=== PATIENT | female | born 1985 | race Caucasian/White ===

== ENCOUNTER 2016-12-20 11:43 | Emergency (ER) | payer BC ==
--- NOTE | 2016-12-20 12:09 | EDM.PDOC ---
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 coates in the clinic for a non- progressing /blighted ovum. Patient states on Saturday she had heavy bleeding with clots and tissue with cramping but that seemed to improve the beginning of the week and then the bleeding restarted today which has been quite heavy using multiple large pads. She has some mild cramping but no nausea or vomiting no urinary symptoms no flank pain and no excessive amount of pelvic pain. Patient was concerned that the volume of bleeding and thought she should be evaluated. The patient's last quantitative hCG was done on December 13 and was 15,795. Patient states she had ultrasounds performed in the office by Dr. coates, the last one being on before the Cytotec, which documented the not progressing. Patient does not feel lightheaded or dizzy and has no chest pain or shortness of breath. Patient does have a history of extensive cardiac surgery to repair an ASD, right ventriculoplasty and a band repair of the tricuspid valve performed in 2008. 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 She's not on any anticoagulation therapy or any blood pressure medication Review of systems: As per history of present illness and below otherwise all systems reviewed and negative. Past medical history: As per history of present illness and as reviewed below otherwise noncontributory. Surgical history: As per history of present illness and as reviewed below otherwise noncontributory. Social history: No reported history of drug or alcohol abuse. Family history: As per history of present illness and as reviewed below otherwise noncontributory. Physical exam: General: Well-developed well-nourished female who is nontoxic and vital signs were reviewed by me. HEENT: Atraumatic, normocephalic, negative for conjunctival pallor or scleral icterus, mucous membranes moist, throat clear, neck supple, nontender, trachea midline. Lungs: Clear to auscultation, breath sounds equal bilaterally, chest nontender. Heart: S1S2, regular, negative for clicks, rubs, or JVD. Abdomen: Soft, nondistended, nontender. Negative for masses or hepatosplenomegaly. Negative for costovertebral tenderness. Pelvis: Stable nontender. Genitourinary: External genitalia within normal limits and there is some dark blood and clots in the vault. Os has a trickle of blood emerging and is not open and the uterus is small and somewhat bulky but nontender and no adnexal tenderness. Rectal: Deferred. Extremities: Atraumatic, negative for cords or calf pain. Neurovascular unremarkable. Neuro: Awake, alert, oriented. Cranial nerves II through XII unremarkable. Cerebellum unremarkable. Motor and sensory unremarkable throughout. Exam nonfocal. Diagnostics: CBC serum quantitative hCG pelvic ultrasound Therapeutics: 1205: Case was discussed with Dr. coates who recommends CBC hCG pelvic ultrasound and to recontact her with those results. 1342: All testing results were discussed with Dr. coates as well as with the patient and she recommends giving the patient Methergine your 0.2 mg every 6 hours for 2 days. The patient has been advised that if the bleeding stops and she continues to have cramping to stop the medication and to call Dr. Coates's office she has any issues with persistent heavy bleeding. Impression: Persistent vaginal bleeding, complete Definitive disposition and diagnosis as appropriate pending reevaluation and review of above. Pelvic Cramping Pain Score (Numeric/FACES): 3 - Related Data Allergies Allergy/AdvReac Type Severity Reaction Status Date / Time Penicillins Allergy Rash Verified 12/20/16 11:52 Home Meds: Home Meds Vit37/Iron/Folic Acid [Prenata] 1 tab PO DAILY 10/26/14 [History] Social & Family History - Tobacco Use Smoking Status *Q: Never Smoker - Alcohol Use Days Per Week of Alcohol Use: 0 Number of Drinks Per Day: 0 Total Drinks Per Week: 0 - Recreational Drug Use Recreational Drug Use: No Drug Use in Last 12 Months: No ED ROS GENERAL - Review of Systems Review Of Systems: ROS reveals no pertinent complaints other than HPI. ED EXAM, GENERAL - Physical Exam Exam: See Below (See dictation) Course - Vital Signs Last Recorded V/S: Last Vital Signs Temp 36.3 C 12/20/16 11:52 Pulse 110 H 12/20/16 11:52 Resp 18 12/20/16 11:52 BP 128/73 12/20/16 11:52 Pulse Ox 97 12/20/16 11:52 - Orders/Labs/Meds Labs: Laboratory Tests 12/20/16 12/20/16 Range/Units 12:20 12:20 WBC 9.73 (4.0-11.0) K/uL RBC 3.70 L (4.30-5.90) M/uL Hgb 11.4 L (12.0-16.0) g/dL Hct 33.3 L (36.0-46.0) % MCV 90.0 (80.0-98.0) fL MCH 30.8 (27.0-32.0) pg MCHC 34.2 (31.0-37.0) g/dL RDW Std Deviation 39.5 (28.0-62.0) fl RDW Coeff of Renan 12 (11.0-15.0) % Plt Count 169 (150-400) K/uL MPV 11.60 (7.40-12.00) fL Neut % (Auto) 75.4 (48.0-80.0) % Lymph % (Auto) 19.5 (16.0-40.0) % [place] % (Auto) 4.3 (0.0-15.0) % Eos % (Auto) 0.5 (0.0-7.0) % Baso % (Auto) 0.3 (0.0-1.5) % Neut # (Auto) 7.3 H (1.4-5.7) K/uL Lymph # (Auto) 1.9 (0.6-2.4) K/uL [place] # (Auto) 0.4 (0.0-0.8) K/uL Eos # (Auto) 0.1 (0.0-0.7) K/uL Baso # (Auto) 0.0 (0.0-0.1) K/uL Nucleated RBC % 0.0 /100WBC Nucleated RBCs # 0 K/uL HCG, Quant 338.2 mIU/mL Departure - Departure Time of Disposition: 13:51 Disposition: Home, Self-Care 01 Condition: good Clinical Impression: Complete , Vaginal bleeding Forms: ED Department Discharge Additional Instructions: The following information is given to patients seen in the emergency department who are being discharged to home. This information is to outline your options for follow-up care. We provide all patients seen in our emergency department with a follow-up referral. The need for follow-up, as well as the timing and circumstances, are variable depending upon the specifics of your emergency department visit. If you don't have a primary care physician on staff, we will provide you with a referral. We always advise you to contact your personal physician following an emergency department visit to inform them of the circumstance of the visit and for follow-up with them and/or the need for any referrals to a consulting specialist. The emergency department will also refer you to a specialist when appropriate. This referral assures that you have the opportunity for followup care with a specialist. All of these measure are taken in an effort to provide you with optimal care, which includes your followup. Under all circumstances we always encourage you to contact your private physician who remains a resource for coordinating your care. When calling for followup care, please make the office aware that this follow-up is from your recent emergency room visit. If for any reason you are refused follow-up, please contact the [facility] emergency department at and ask to speak to the emergency department charge nurse. [facility] [address] [phone] Please call 's office for any persistent vaginal bleeding and take Methergine as prescribed. Rest and push fluids and return to ER as needed and as discussed. Please keep your followup appointment in the clinic
--- NOTE | 2016-12-20 13:33 | US ---
EXAMINATION: Transvaginal pelvic ultrasound HISTORY: Pain COMPARISON: None TECHNIQUE: Grayscale, color Doppler, and spectral Doppler images obtained transvaginally. FINDINGS: Uterus is normal in size, contour, and echogenicity without a focal uterine mass. The endo metrial stripe thickness measures 1 cm and is mildly heterogeneous without internal color Doppler fl ow. No free pelvic fluid. Both the left and right ovaries appear normal in size, contour, and echogenicity demonstrating yemi l color and spectral Doppler flow. Small follicles are noted. No adnexal masses. IMPRESSION: 1. Possible minimal remaining hemorrhagic products within the endometrial stripe without evidence of retained products of conception.
[2016-12-20 14:08] VITALS: BP 115/67
== END 2016-12-20 14:04 | disposition home or self-care (01) ==
LOC: MW.ED 11:43
DX: O03.9 Complete or unspecified spontaneous abortion without complication (principal); Z88.0 Allergy status to penicillin
CPT/HCPCS: 36415; 76856; 76856-26; 84702; 85025; 99283; 99284-25

== ENCOUNTER 2017-11-05 09:47 | Inpatient (IN) | payer BC ==
[2017-11-05] MEDS ORDERED: Clindamycin Phosphate in D5W 900 MG in Premix Bag 1 BAG IV ONE ×2 (10:10)
[2017-11-05] MEDS ORDERED: Sodium Chloride 0.9% 2.5 ML Syringe FLUSH PRN (10:10)
[2017-11-05] MEDS ORDERED: Sodium Chloride 0.9% 10 ML Syringe FLUSH PRN (10:10)
[2017-11-05] MEDS ORDERED: Oxytocin/0.9 % Sodium Chloride 30 UNIT/500 ML BAG IV SCH (10:15)
[2017-11-05] MEDS ORDERED: Citric Acid/Sodium Citrate Solution 30 ML Cup PO SCH (10:15)
[2017-11-05] MEDS ORDERED: Gentamicin Pediatric 10 MG/ML 2 ML SDV IV SCH (10:15)
--- NOTE | 2017-11-05 10:30 | PCM.PREANE ---
Preanesthetic Assessment - Anesthesia/Transfusion/Family Hx Anesthesia History: Prior Anesthesia Without Reaction (Regional and GA without complications) Other Type of Anesthesia Reaction Comment: Denies any known problem in past, no known family hx; problems Transfusion History: No Prior Transfusion(s) - Review of Systems General: No Symptoms Pulmonary: No Symptoms Cardiovascular: No Symptoms Gastrointestinal: No Symptoms Neurological: No Symptoms Other: Reports: None - Physical Assessment NPO Status Date: 11/04/17 NPO Status Time: 22:00 Pulse: 68 O2 Sat by Pulse Oximetry: 99 Respiratory Rate: 18 Height: 5 ft 8 in Weight: 84.368 kg ASA Class: 2 Mental Status: Alert & Oriented x3 Airway Class: Mallampati = 2 Dentition: Reports: Normal Dentition Thyro-Mental Finger Breadths: 3 Mouth Opening Finger Breadths: 3 ROM/Head Extension: Full Lungs: Clear to Auscultation, Normal Respiratory Effort Cardiovascular: Regular Rate, Irregular Rhythm - Lab Values: Laboratory Last Values WBC 8.30 K/uL (4.0-11.0) 11/04/17 11:07 RBC 4.29 M/uL (4.30-5.90) L 11/04/17 11:07 Hgb 13.2 g/dL (12.0-16.0) 11/04/17 11:07 Hct 39.0 % (36.0-46.0) 11/04/17 11:07 MCV 90.9 fL (80.0-98.0) 11/04/17 11:07 MCH 30.8 pg (27.0-32.0) 11/04/17 11:07 MCHC 33.8 g/dL (31.0-37.0) 11/04/17 11:07 RDW Std Deviation 42.9 fl (28.0-62.0) 11/04/17 11:07 RDW Coeff of Renan 13 % (11.0-15.0) 11/04/17 11:07 Plt Count 154 K/uL (150-400) 11/04/17 11:07 MPV 11.90 fL (7.40-12.00) 11/04/17 11:07 Nucleated RBC % 0.0 /100WBC 11/04/17 11:07 Nucleated RBCs # 0 K/uL 11/04/17 11:07 Blood Type A POSITIVE 11/04/17 11:07 Antibody Screen NEGATIVE 11/04/17 11:07 - Allergies Allergies/Adverse Reactions: Allergies Allergy/AdvReac Type Severity Reaction Status Date / Time Penicillins Allergy Hives Verified 10/31/17 13:13 - Acknowledgements Anesthesia Type Planned: General Anesthesia, Spinal (with Duramorph) Pt an Appropriate Candidate for the Planned Anesthesia: Yes Alternatives and Risks of Anesthesia Discussed w Pt/Guardian: Yes Pt/Guardian Understands and Agrees with Anesthesia Plan: Yes PreAnesthesia Questionnaire Other HEENT History: has upper and lower permanent dental retainer Cardiovascular History: Reports: Other (See Below) Other Cardiovascular History: Congential tricuspid valve defect Respiratory History: Reports: None Gastrointestinal History: Reports: GERD Genitourinary History: Reports: None LOAD BLOCKER History: Reports: , Other (See Below) : 2 Para: 1 LMP (Approximate): Other OB/BYN History: Ovarian cysts Musculoskeletal History: Reports: None Neurological History: Reports: None Psychiatric History: Reports: None Endocrine/Metabolic History: Reports: Diabetes, Gestational (Has required insulin for the that month) Hematologic History: Reports: None Immunologic History: Reports: None Oncologic (Cancer) History: Reports: None Dermatologic History: Reports: None - Infectious Disease History Infectious Disease History: Reports: None - Past Surgical History Head Surgeries/Procedures: Reports: None Cardiovascular Surgical History: Reports: Other (See Below) Other Cardiovascular Surgeries/Procedures: Repair to Tricuspid Valve in 2008. - correction of Ebstein's Anomaly Female Surgical History: Reports: Section, Other (See Below) Other Female Surgeries/Procedures: "Bladder stretch surgery 25yrs ago" - SUBSTANCE USE Smoking Status *Q: Never Smoker Days Per Week of Alcohol Use: 0 Number of Drinks Per Day: 0 Total Drinks Per Week: 0 Recreational Drug Use History: No - HOME MEDS Home Medications: Home Meds Docosahexanoic Acid [ Dha] 1 cap PO DAILY 10/31/17 [History] L.acidoph,Paracasei, B.lactis [Probiotic] 1 cap PO DAILY 10/31/17 [History] Nph, Human Insulin Isophane [Humulin N] 10 unit SQ BEDTIME 10/31/17 [History] - CURRENT (IN HOUSE) MEDS Current Meds: Current Medications Citric Acid/Sodium Citrate (Bicitra Solution) 30 ml PO .ONCE AGATA Clindamycin Phosphate 900 mg/ (Premix) 50 mls @ 100 mls/hr IV ASDIRECTED ONE Stop: 11/05/17 10:39 Lactated Ringer's (Ringers, Lactated) 1,000 mls @ 500 mls/hr IV .BOLUS GAATA Oxytocin/Sodium Chloride (Oxytocin 30 Unit/500 Ml-Ns) 30 unit in 500 mls @ 250 mls/hr IV TITRATE AGATA Gentamicin Sulfate 240 mg/ (Sodium Chloride) 56 mls @ 112 mls/hr IV Q12H AGATA Sodium Chloride (Saline Flush) 10 ml FLUSH ASDIRECTED PRN PRN Reason: Keep Vein Open Sodium Chloride (Saline Flush) 2.5 ml FLUSH ASDIRECTED PRN PRN Reason: Keep Vein Open
[2017-11-05] MEDS ORDERED: Ondansetron 4 MG/2 ML SDV ONE (10:33)
[2017-11-05] MEDS ORDERED: ePHEDrine 50 MG/ML SDV ONE ×2 (10:33→11:09)
[2017-11-05] MEDS ORDERED: Morphine PF 1 MG/ML Amp ONE (10:34)
[2017-11-05] MEDS ORDERED: Sodium Chloride 0.9% 20 ML ONE ×2 (10:34→11:46)
[2017-11-05] MEDS ORDERED: Oxytocin/0.9 % Sodium Chloride 30 UNIT/500 ML BAG ONE (10:45)
[2017-11-05] MEDS: Lactated Ringers 1,000 ML IV SCH ×2 (10:59→11:23)
[2017-11-05 11:15] LABS: CHLORIDE,CL 106 mmol/L (98-110); SODIUM,NA 137 mmol/L (136-146)
[2017-11-05] MEDS ORDERED: Octyl 2-Cyanoacrylate 1 Tube ONE (11:18)
[2017-11-05] MEDS ORDERED: Acetaminophen/oxyCODONE 325-5 MG Tab PO PRN ×2 (12:23→12:36)
[2017-11-05] MEDS ORDERED: diphenhydrAMINE 50 MG/ML SDV IVPUSH PRN (12:23)
[2017-11-05] MEDS ORDERED: Bisacodyl 10 MG Supp RECTAL PRN (12:23)
[2017-11-05] MEDS ORDERED: Lanolin 100% Cream 7 GM Tube TOP PRN (12:23)
[2017-11-05] MEDS ORDERED: Ondansetron 4 MG/2 ML SDV IV PRN (12:23)
[2017-11-05] MEDS ORDERED: Ibuprofen 800 MG Tab PO PRN (12:23)
--- NOTE | 2017-11-05 12:27 | PCM.OPNOTE ---
- General Post-Op/Procedure Note Date of Surgery/Procedure: 11/05/17 Operative Procedure(s): repeat low transverse Findings: liveborn male complete breech presentation, meconium present, normal pelvis Pre Op Diagnosis: 39 weeks breech presentation, prior , gestational diabetes, declines version, Post-Op Diagnosis: Same Anesthesia Technique: Spinal Primary Surgeon: Monica Coates Anesthesia Provider: Angel Watts Structural Mill Supervisor: Lesly Lock Pathology: none Fluid Replacement, Intraop: 2,200 Output, Urine Amount: 280 EBL in mLs: 500 Complications: None Known Condition: Good
[2017-11-05] MEDS ORDERED: Lactated Ringers 1,000 ML IV SCH (12:30)
[2017-11-05] MEDS ORDERED: fentaNYL 100 MCG/2 ML SDV IVPUSH PRN (12:36)
[2017-11-05] MEDS ORDERED: Nalbuphine 10 MG/1 ML Vial IVPUSH PRN (12:36)
[2017-11-05] MEDS ORDERED: Naloxone 0.4 MG/ML Syringe IVPUSH PRN (12:36)
--- NOTE | 2017-11-05 12:42 | PCM.POSTAN ---
POST ANESTHESIA ASSESSMENT - MENTAL STATUS Mental Status: Alert, Oriented - RESPIRATORY Respiratory Status: Respiratory Rate WNL, Airway Patent, O2 Saturation Stable - CARDIOVASCULAR CV Status: Pulse Rate WNL, Blood Pressure Stable - GASTROINTESTINAL GI Status: No Symptoms - PAIN Pain Score: 0 (spinal still intact) - POST OP HYDRATION Hydration Status: Adequate & Stable
[2017-11-05] MEDS: Ketorolac 30 MG/ML SDV IVPUSH SCH ×2 (12:57→18:32)
--- NOTE | 2017-11-05 16:47 | OR ---
SURGEON: Monica Coates M.D. DATE OF PROCEDURE: 11/05/2017 PREOPERATIVE DIAGNOSES: 1. 39 and 6/7 week intrauterine . 2. Breech presentation. 3. Prior delivery, declines external version. 4. Gestational diabetes type A2. 5. Corrected maternal Ebstein anomaly. POSTOPERATIVE DIAGNOSES: 1. 39 and 6/7 week intrauterine . 2. Breech presentation. 3. Prior delivery, declines external version. 4. Gestational diabetes type A2. 5. Corrected maternal Ebstein anomaly. PROCEDURE: Repeat low-transverse section. ANESTHESIA: Spinal. ESTIMATED BLOOD LOSS: 500 mL. FLUIDS: 2200 mL of crystalloid. URINE OUTPUT: 280 mL. FINDINGS: Live-born male, weight and Apgars are pending. Meconium noted. Complete breech presentation. Normal-appearing uterus, tubes, and ovaries. COMPLICATIONS: None known. DISPOSITION: The infant is in nursery in good condition. Mother is in recovery in good condition. BRIEF HISTORY: This is a 32-year-old female, she is -0-1-2. She presents at 39 and 6/7 weeks' gestation for a repeat delivery due to breech presentation. Discussion for external version was held; however, she has had a prior delivery and after discussion, she desires to proceed with a repeat if the baby is breech at the time of presentation. Confirmation of breech presentation was performed prior to taking the patient to the OR. Risks of delivery were discussed including bleeding, infection, injury to bowel, bladder, blood vessels, ureters or other organs, risk of thromboembolic event, and risk of anesthesia. She does take NPH insulin 15 units at bedtime with excellent glucose control and she has a corrected Brian anomaly and this is her 3rd delivery since correction of the anomaly and has had no complications regarding cardiac issues during the . DESCRIPTION OF PROCEDURE: With the patient in left tilt position, under adequate spinal analgesia, the abdomen was prepped with chlorhexidine and draped in usual fashion for abdominal surgery. SCDs were in place. Chow catheter had been placed and she had received clindamycin and gentamicin preoperatively for SBE prophylaxis in addition to routine prophylaxis. After documentation of adequate analgesia, a transverse curvilinear incision was made 2 cm cephalad from the pubic symphysis and carried through the subcutaneous tissue to the fascia, which was scored transversely in the midline. The fascial incision was extended using curved Ron scissors and elevated from the underlying rectus muscle using sharp and blunt dissection. The rectus muscles were in midline. A finger was used to enter the peritoneal cavity. There were no adhesions anteriorly. The incision was extended using sharp and blunt dissection. There was some adhesion of the bladder peritoneum to the lower uterine segment. These were incised and released and then the Cody O retractor was placed. The transverse curvilinear incision was made over the lower uterine segment with a scalpel. Meconium was noted and therefore DeLee suction was placed on the table and the incision was extended by blunt dissection. The feet were delivered via the uterine incision. The was turned to sacrum anterior position and with fundal pressure, the arms were swept. A finger was placed into the mouth and the head was flexed and delivered with the DeLee suctioning. The cord was clamped x2 and cut and the infant was handed to the nurse present at the time of delivery. The infant was a liveborn male, weight and Apgars are pending at the time of dictation. Cord blood was collected for cord ABGs as well as routine cord blood sampling. The placenta was removed by manual extraction. The uterus was cleaned with a dry laparotomy tape. The cervix was opened with ring forceps. The uterine incision was closed with a running locked suture of 0 Polysorb followed by an imbricating layer of 0 Polysorb. The uterine incision was inspected and was completely hemostatic. The tubes and ovaries were inspected and appeared normal. The posterior cul-de-sac and paracolic gutters were cleaned with wet laparotomy tape. The uterine incision was again inspected and was completely hemostatic. Therefore, the Cody O retractor was removed and the rectus muscles were reapproximated in midline using a running mattress suture of 0 Polysorb. The posterior aspect of the fascia was inspected and any areas of bleeding that were noted were cauterized. The fascial incision was closed with a running suture of 0 Polysorb. Subcutaneous tissue was irrigated. Any areas of bleeding that were noted were cauterized. The skin was closed with a running subcuticular suture of 3-0 Polysorb followed by skin glue. Final sponge, needle, and instrument counts were reported as correct. There were no known complications. Mother is in recovery in good condition. Infant is in nursery in good condition and score for the male were 8 and 9 with 3590 g or 7 pounds 15 ounces. MERCEDES BUITRAGO /[id number]
[2017-11-05] MEDS: Docusate Sodium 100 MG Cap PO SCH (20:52)
[2017-11-06] MEDS: Ketorolac 30 MG/ML SDV IVPUSH SCH ×3 (00:26→12:41)
[2017-11-06 05:37] LABS: CHLORIDE,CL 103 mmol/L (98-110); SODIUM,NA 135 mmol/L (136-146)
--- NOTE | 2017-11-06 07:27 | PCM48HPAN ---
Post Anesthesia Note - EVALUATION WITHIN 48HRS OF ANESTHETIC Vital Signs in Normal Range: Yes Patient Participated in Evaluation: Yes Respiratory Function Stable: Yes Airway Patent: Yes Cardiovascular Function Stable: Yes Hydration Status Stable: Yes Pain Control Satisfactory: Yes Nausea and Vomiting Control Satisfactory: Yes Mental Status Recovered: Yes Pulse Rate: 68 Resp Rate: 17 - COMMENTS/OBSERVATIONS Free Text/Narrative:: Pt up to the bathroom getting ready for the day with no reported anesthesia complications. She states that she has had slight pruritis in her face from the duramorph, but that it is minimal compared to her last .
--- NOTE | 2017-11-06 09:48 | PCM.PNPP ---
- General Info Date of Service: 11/06/17 Functional Status: Reports: Pain Controlled, Tolerating Diet, Ambulating, Urinating - Review of Systems General: Reports: No Symptoms HEENT: Reports: No Symptoms Pulmonary: Reports: No Symptoms Cardiovascular: Reports: No Symptoms Gastrointestinal: Reports: No Symptoms Genitourinary: Reports: No Symptoms Musculoskeletal: Reports: No Symptoms Skin: Reports: No Symptoms Neurological: Reports: No Symptoms Psychiatric: Reports: No Symptoms - Patient Data Vital Signs - Most Recent: Last Vital Signs Temp 36.6 C 11/06/17 04:00 Pulse 68 11/06/17 07:27 Resp 17 11/06/17 07:27 BP 108/56 L 11/06/17 00:00 Pulse Ox 95 11/06/17 07:00 Weight - Most Recent: 84.368 kg I&O - Last 24 Hours: Intake & Output 11/05/17 11/06/17 11/06/17 22:59 06:59 14:59 Intake Total 300 1800 Output Total 565 800 Balance -265 1000 Lab Results - Last 24 Hours: Laboratory Results - last 24 hr 11/05/17 11/05/17 11/06/17 Range/Units 10:46 10:46 05:00 Hgb 11.8 L (12.0-16.0) g/dL Hct 35.4 L (36.0-46.0) % Sodium 137 (136-146) mmol/L Potassium 3.9 (3.5-5.1) mmol/L Chloride 106 (98-110) mmol/L Carbon Dioxide 22 (21-31) mmol/L BUN 12 (6.0-23.0) mg/dL Creatinine 0.6 (0.6-1.5) mg/dL Est Cr Clr Drug Dosing 135.79 mL/min Estimated GFR (MDRD) > 60.0 ml/min Glucose 90 (60-110) mg/dL Calcium 9.1 (8.8-10.8) mg/dL Magnesium 1.0 L (1.5-2.3) mEq/L 11/06/17 Range/Units 05:00 Hgb (12.0-16.0) g/dL Hct (36.0-46.0) % Sodium 135 L (136-146) mmol/L Potassium 4.3 (3.5-5.1) mmol/L Chloride 103 (98-110) mmol/L Carbon Dioxide 25 (21-31) mmol/L BUN 12 (6.0-23.0) mg/dL Creatinine 0.6 (0.6-1.5) mg/dL Est Cr Clr Drug Dosing 135.79 mL/min Estimated GFR (MDRD) > 60.0 ml/min Glucose 109 (60-110) mg/dL Calcium 8.5 L (8.8-10.8) mg/dL Magnesium (1.5-2.3) mEq/L Med Orders - Current: Current Medications Bisacodyl (Dulcolax) 10 mg RECTAL .ONCE PRN PRN Reason: Constipation Diphenhydramine HCl (Benadryl) 25 mg IVPUSH Q6H PRN PRN Reason: Itching or Nausea Docusate Sodium (Colace) 100 mg PO BID [facility] Last Admin: 11/05/17 20:52 Dose: 100 mg Emollient Ointment (Lansinoh Hpa) 0 gm TOP ASDIRECTED PRN PRN Reason: Sore Nipples Last Admin: 11/05/17 20:52 Dose: 7 gm Fentanyl (Sublimaze) 50 mcg IVPUSH Q60M PRN PRN Reason: Breakthrough Pain Stop: 11/06/17 12:40 Lactated Ringer's (Ringers, Lactated) 1,000 mls @ 125 mls/hr IV ASDIRECTED [facility] Last Admin: 11/05/17 13:25 Dose: 125 mls/hr Ibuprofen (Motrin) 800 mg PO Q8H PRN PRN Reason: mild pain or fever Ketorolac Tromethamine (Toradol) 30 mg IVPUSH Q6H [facility] Stop: 11/06/17 12:31 Last Admin: 11/06/17 06:53 Dose: 30 mg Nalbuphine HCl (Nubain) 2.5 mg IVPUSH Q3H PRN PRN Reason: Pruritis Stop: 11/06/17 12:41 Naloxone HCl (Narcan) 0.1 mg IVPUSH ONETIME PRN PRN Reason: RR<6 WITH STIMULATION Stop: 11/06/17 12:41 Ondansetron HCl (Zofran) 4 mg IV Q4H PRN PRN Reason: Nausea/Vomiting Oxycodone/Acetaminophen (Percocet 325-5 Mg) 1 tab PO Q4H PRN PRN Reason: Pain (moderate 4-6) Oxycodone/Acetaminophen (Percocet 325-5 Mg) 2 tab PO Q4H PRN PRN Reason: Pain (moderate 4-6) Oxycodone/Acetaminophen (Percocet 325-5 Mg) 1 tab PO .Q4HRS PRN PRN Reason: Breakthrough Pain Discontinued Medications Citric Acid/Sodium Citrate (Bicitra Solution) 30 ml PO .ONCE [facility] Last Admin: 11/05/17 11:28 Dose: 30 ml Ephedrine Sulfate (Ephedrine Sulfate) Confirm Administered Dose 50 mg .ROUTE .STK-MED ONE Stop: 11/05/17 10:34 Ephedrine Sulfate (Ephedrine Sulfate) Confirm Administered Dose 50 mg .ROUTE .STK-MED ONE Stop: 11/05/17 11:10 Clindamycin Phosphate 900 mg/ (Premix) 50 mls @ 100 mls/hr IV ASDIRECTED ONE Stop: 11/05/17 10:39 Last Admin: 11/05/17 11:23 Dose: 100 mls/hr Lactated Ringer's (Ringers, Lactated) 1,000 mls @ 500 mls/hr IV .BOLUS [facility] Last Admin: 11/05/17 11:23 Dose: 500 mls/hr Oxytocin/Sodium Chloride (Oxytocin 30 Unit/500 Ml-Ns) 30 unit in 500 mls @ 250 mls/hr IV TITRATE [facility] Gentamicin Sulfate 240 mg/ (Sodium Chloride) 56 mls @ 112 mls/hr IV Q12H [facility] Last Admin: 11/05/17 10:58 Dose: 112 mls/hr Sodium Chloride (Normal Saline) Confirm Administered Dose 20 mls @ as directed .ROUTE .STK-MED ONE Stop: 11/05/17 10:35 Oxytocin/Sodium Chloride (Oxytocin 30 Unit/500 Ml-Ns) Confirm Administered Dose 30 unit in 500 mls @ as directed .ROUTE .STK-MED ONE Stop: 11/05/17 10:46 Sodium Chloride (Normal Saline) Confirm Administered Dose 20 mls @ as directed .ROUTE .STK-MED ONE Stop: 11/05/17 11:47 Lidocaine HCl (Xylocaine-Mpf 1%) Confirm Administered Dose 5 ml .ROUTE .STK-MED ONE Stop: 11/05/17 11:42 Morphine Sulfate (Duramorph Pf) Confirm Administered Dose 1 mg .ROUTE .STK-MED ONE Stop: 11/05/17 10:35 Octyl Cyanoacrylate (Dermabond Advance) Confirm Administered Dose 1 applic .ROUTE .STK-MED ONE Stop: 11/05/17 11:19 Ondansetron HCl (Zofran) Confirm Administered Dose 4 mg .ROUTE .STK-MED ONE Stop: 11/05/17 10:34 Sodium Chloride (Saline Flush) 10 ml FLUSH ASDIRECTED PRN PRN Reason: Keep Vein Open Sodium Chloride (Saline Flush) 2.5 ml FLUSH ASDIRECTED PRN PRN Reason: Keep Vein Open - Interaction Infant Disposition, : [place] in Room with Family Infant Feeding: Breastfed ; Nursed Well Support Person: - Recovery Exam Fundal Tone: Firm Fundal Level: 1 Fingerbreadths Above Umbilicus Fundal Placement: Midline Lochia Amount: Scant Lochia Color: Rubra/Red Perineum Description: Intact, Minimal Bruising/Swelling Episiotomy/Laceration: None Bladder Status: Indwelling Catheter in Place Urinary Elimination: Indwelling Catheter - Exam General: Alert, Oriented Lungs: Clear to Auscultation, Normal Respiratory Effort Cardiovascular: Regular Rate, Regular Rhythm GI/Abdominal Exam: Normal Bowel Sounds, Soft, Non-Tender, No Distention Extremities: Normal Inspection, Non-Tender, No Pedal Edema Skin: Warm, Dry, Intact Wound/Incisions: Dressing Dry and Intact Neurological: No New Focal Deficit Psy/Mental Status: Alert, Normal Affect, Normal Mood - Problem List & Annotations (1) Breech presentation of fetus SNOMED Code(s): 8432041 Code(s): O32.1XX0 - MATERNAL CARE FOR BREECH PRESENTATION, UNSP Status: Acute Current Visit: Yes Qualifiers: Fetus number: single or unspecified fetus Qualified Code(s): O32.1XX0 - Maternal care for breech presentation, not applicable or unspecified (2) Gestational diabetes mellitus in , insulin controlled SNOMED Code(s): 36498692 Code(s): O24.414 - GESTATIONAL DIABETES IN , INSULIN CONTROLLED Status: Acute Current Visit: Yes Qualifiers: Trimester: third trimester Qualified Code(s): O24.414 - Gestational diabetes mellitus in , insulin controlled (3) 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 SNOMED Code(s): 779817272 Code(s): O99.413 - DISEASES OF THE CIRC SYS COMP , THIRD TRIMESTER; Q28.9 - CONGENITAL MALFORMATION OF CIRCULATORY SYSTEM, UNSPECIFIED Status: Acute Current Visit: Yes (4) section SNOMED Code(s): 41133197 - section Status: Acute Current Visit: No - Problem List Review Problem List Initiated/Reviewed/Updated: Yes - My Orders Last 24 Hours: My Active Orders 11/05/17 10:11 Non Stress Test [RC] PER UNIT ROUTINE Vital Signs [RC] PER UNIT ROUTINE 11/05/17 12:23 Patient Status [ADT] Routine Ambulate [RC] PER UNIT ROUTINE Antiembolic Devices [RC] PER UNIT ROUTINE Communication Order [RC] PER UNIT ROUTINE Communication Order [RC] PER UNIT ROUTINE Communication Order [RC] Per Unit Routine May Shower [RC] ASDIRECTED Notify Provider Intake and Out [RC] ASDIRECTED Notify Provider Vital Signs [RC] ASDIRECTED RT Incentive Spirometry [RC] Q2HWA Acetaminophen/oxyCODONE [Percocet 325-5 MG] 1 tab PO Q4H PRN Acetaminophen/oxyCODONE [Percocet 325-5 MG] 2 tab PO Q4H PRN Bisacodyl [Dulcolax] 10 mg RECTAL .ONCE PRN Ibuprofen [Motrin] 800 mg PO Q8H PRN Lanolin [Lansinoh HPA] See Dose Instructions TOP ASDIRECTED PRN Ondansetron [Zofran] 4 mg IV Q4H PRN diphenhydrAMINE [Benadryl] 25 mg IVPUSH Q6H PRN Abdominal Binder [OM.PC] Routine Assess Lochia [WOMSER] Per Unit Routine Assess Uterine Involution [WOMSER] Per Unit Routine Breast Pump [WOMSER] Per Unit Routine Peripheral IV Discontinue [OM.PC] Routine Sequential Compression Device [OM.PC] Per Unit Routine Resuscitation Status Routine 11/05/17 12:30 Ketorolac [Toradol] 30 mg IVPUSH Q6H Lactated Ringers [Ringers, Lactated] 1,000 ml IV ASDIRECTED 11/05/17 21:00 Docusate Sodium [Colace] 100 mg PO BID 11/05/17 Dinner Regular Diet [DIET] - Assessment Assessment:: POD# 1 after repeat . stable, minimal lochia, normal fasting glucose. Continues to breastfeed well. Pain is well controlled, no cardiac issues overnight. - Plan Plan:: Continue postop care, may shower and ambulate, anticipate home in am.
[2017-11-06] MEDS: Docusate Sodium 100 MG Cap PO SCH ×2 (19:09→21:34)
[2017-11-06] MEDS: Acetaminophen/oxyCODONE 325-5 MG Tab PO PRN (21:34)
[2017-11-07] MEDS: Acetaminophen/oxyCODONE 325-5 MG Tab PO PRN (06:53)
--- NOTE | 2017-11-07 08:04 | PCM.PNPP ---
- General Info Date of Service: 11/07/17 Functional Status: Reports: Pain Controlled, Tolerating Diet, Ambulating, Urinating - Review of Systems General: Reports: Appetite. Denies: Fever, Weakness, Fatigue Pulmonary: Denies: Shortness of Breath, Pleuritic Chest Pain, Cough Cardiovascular: Denies: Chest Pain, Palpitations, Dyspnea on Exertion Gastrointestinal: Denies: Abdominal Pain Genitourinary: Denies: Dysuria - General Info Date of Service: 11/07/17 - Patient Data Vital Signs - Most Recent: Last Vital Signs Temp 36.8 C 11/07/17 04:00 Pulse 65 11/07/17 04:00 Resp 16 11/07/17 04:00 BP 118/67 11/07/17 04:00 Pulse Ox 96 11/07/17 04:00 Weight - Most Recent: 84.368 kg Med Orders - Current: Current Medications Bisacodyl (Dulcolax) 10 mg RECTAL .ONCE PRN PRN Reason: Constipation Diphenhydramine HCl (Benadryl) 25 mg IVPUSH Q6H PRN PRN Reason: Itching or Nausea Docusate Sodium (Colace) 100 mg PO BID [facility] Last Admin: 11/06/17 21:34 Dose: 100 mg Emollient Ointment (Lansinoh Hpa) 0 gm TOP ASDIRECTED PRN PRN Reason: Sore Nipples Last Admin: 11/05/17 20:52 Dose: 7 gm Lactated Ringer's (Ringers, Lactated) 1,000 mls @ 125 mls/hr IV ASDIRECTED [facility] Last Admin: 11/05/17 13:25 Dose: 125 mls/hr Ibuprofen (Motrin) 800 mg PO Q8H PRN PRN Reason: mild pain or fever Last Admin: 11/07/17 03:28 Dose: 800 mg Ondansetron HCl (Zofran) 4 mg IV Q4H PRN PRN Reason: Nausea/Vomiting Oxycodone/Acetaminophen (Percocet 325-5 Mg) 1 tab PO Q4H PRN PRN Reason: Pain (moderate 4-6) Last Admin: 11/06/17 16:26 Dose: 1 tab Oxycodone/Acetaminophen (Percocet 325-5 Mg) 2 tab PO Q4H PRN PRN Reason: Pain (moderate 4-6) Last Admin: 11/07/17 06:53 Dose: 2 tab Oxycodone/Acetaminophen (Percocet 325-5 Mg) 1 tab PO .Q4HRS PRN PRN Reason: Breakthrough Pain Discontinued Medications Citric Acid/Sodium Citrate (Bicitra Solution) 30 ml PO .ONCE [facility] Last Admin: 11/05/17 11:28 Dose: 30 ml Ephedrine Sulfate (Ephedrine Sulfate) Confirm Administered Dose 50 mg .ROUTE .STK-MED ONE Stop: 11/05/17 10:34 Ephedrine Sulfate (Ephedrine Sulfate) Confirm Administered Dose 50 mg .ROUTE .STK-MED ONE Stop: 11/05/17 11:10 Fentanyl (Sublimaze) 50 mcg IVPUSH Q60M PRN PRN Reason: Breakthrough Pain Stop: 11/06/17 12:40 Clindamycin Phosphate 900 mg/ (Premix) 50 mls @ 100 mls/hr IV ASDIRECTED ONE Stop: 11/05/17 10:39 Last Admin: 11/05/17 11:23 Dose: 100 mls/hr Lactated Ringer's (Ringers, Lactated) 1,000 mls @ 500 mls/hr IV .BOLUS [facility] Last Admin: 11/05/17 11:23 Dose: 500 mls/hr Oxytocin/Sodium Chloride (Oxytocin 30 Unit/500 Ml-Ns) 30 unit in 500 mls @ 250 mls/hr IV TITRATE [facility] Gentamicin Sulfate 240 mg/ (Sodium Chloride) 56 mls @ 112 mls/hr IV Q12H [facility] Last Admin: 11/05/17 10:58 Dose: 112 mls/hr Sodium Chloride (Normal Saline) Confirm Administered Dose 20 mls @ as directed .ROUTE .STK-MED ONE Stop: 11/05/17 10:35 Oxytocin/Sodium Chloride (Oxytocin 30 Unit/500 Ml-Ns) Confirm Administered Dose 30 unit in 500 mls @ as directed .ROUTE .STK-MED ONE Stop: 11/05/17 10:46 Sodium Chloride (Normal Saline) Confirm Administered Dose 20 mls @ as directed .ROUTE .STK-MED ONE Stop: 11/05/17 11:47 Ketorolac Tromethamine (Toradol) 30 mg IVPUSH Q6H [facility] Stop: 11/06/17 12:31 Last Admin: 11/06/17 12:41 Dose: 30 mg Lidocaine HCl (Xylocaine-Mpf 1%) Confirm Administered Dose 5 ml .ROUTE .STK-MED ONE Stop: 11/05/17 11:42 Morphine Sulfate (Duramorph Pf) Confirm Administered Dose 1 mg .ROUTE .STK-MED ONE Stop: 11/05/17 10:35 Nalbuphine HCl (Nubain) 2.5 mg IVPUSH Q3H PRN PRN Reason: Pruritis Stop: 11/06/17 12:41 Naloxone HCl (Narcan) 0.1 mg IVPUSH ONETIME PRN PRN Reason: RR<6 WITH STIMULATION Stop: 11/06/17 12:41 Octyl Cyanoacrylate (Dermabond Advance) Confirm Administered Dose 1 applic .ROUTE .STK-MED ONE Stop: 11/05/17 11:19 Ondansetron HCl (Zofran) Confirm Administered Dose 4 mg .ROUTE .STK-MED ONE Stop: 11/05/17 10:34 Sodium Chloride (Saline Flush) 10 ml FLUSH ASDIRECTED PRN PRN Reason: Keep Vein Open Sodium Chloride (Saline Flush) 2.5 ml FLUSH ASDIRECTED PRN PRN Reason: Keep Vein Open - Infant Interaction Infant Disposition, : [place] in Room with Family Infant Feeding: Breastfed ; Nursed Well Support Person: - Recovery Exam Fundal Tone: Firm Fundal Level: 1 Fingerbreadths Below Umbilicus Fundal Placement: Midline Lochia Amount: Scant Lochia Color: Rubra/Red Perineum Description: Intact, Minimal Bruising/Swelling Episiotomy/Laceration: None Bladder Status: Voiding Urinary Elimination: Voided - Exam General: Alert, Oriented Neck: Supple Lungs: Clear to Auscultation, Normal Respiratory Effort Cardiovascular: Regular Rate, Regular Rhythm GI/Abdominal Exam: Normal Bowel Sounds, Non-Tender, No Distention Extremities: Normal Inspection, Pedal Edema (trace) Skin: Warm, Dry, Intact - Problem List & Annotations (1) section SNOMED Code(s): 96567775 - section Status: Acute Current Visit: No - Problem List Review Problem List Initiated/Reviewed/Updated: Yes - Assessment Assessment:: POD# 2 after repeat . Minimal pain and lochia. Breast feeding well. Discharge home today. - Plan Plan:: Discharge instructions reviewed. Pelvic rest for 6 weeks. Continue PNV while breast feeding. Rx for Percocet to use as needed for pain. No lifting greater than 10lbs for 6 weeks. Instructed patient to call if she develops fever greater than 101 or bleeding through a large pad an hour. Will need 2hr GTT at visit. F/U with [facility] in 2 and 6 weeks.
[2017-11-07 16:41] VITALS: BP 131/68
== END 2017-11-07 11:05 | disposition home or self-care (01) | DRG 540 ==
LOC: MW.OB 09:47
PROVIDERS: ADMIT Obstetrics & Gynecology; ATTEND Obstetrics & Gynecology
PROC: 10D00Z1 Extraction of Products of Conception, Low, Open Approach (ICD-10-PCS; principal; 2017-11-05)
DX: O32.1XX0 Maternal care for breech presentation, not applicable or unspecified (principal); O24.424 Gestational diabetes mellitus in childbirth, insulin controlled; O99.413 Diseases of the circulatory system complicating pregnancy, third trimester; Q28.9 Congenital malformation of circulatory system, unspecified; Z3A.39 39 weeks gestation of pregnancy; Z37.0 Single live birth; Z88.0 Allergy status to penicillin
CPT/HCPCS: 01961; 36415; 59025; 80048; 83735; 85014; 85018; 85027; 86850; 86900; 86901; A9270-GY; J1580; J1885; J2274; J2405; J7050; J7120

== ENCOUNTER 2018-12-23 06:47 | Day surgery (SDC) | payer BC ==
[~2018-12-23 06:47] MED LIST: Lactated Ringers 1,000 ML IV SCH; Sodium Chloride 0.9% 10 ML SDV IV PRN; Sodium Chloride 0.9% 10 ML Syringe FLUSH PRN; Sodium Chloride 0.9% 2.5 ML Syringe FLUSH PRN; ceFAZolin 2 GM in Premix Bag 1 BAG IV ONE
[2018-12-23] MEDS ORDERED: Bupivacaine 0.5% 30 ML SDV ONE (07:14)
[2018-12-23] MEDS ORDERED: Scopolamine 1.5 MG Transdermal Patch TRDERM PRN ×2 (07:23→09:03)
--- NOTE | 2018-12-23 07:25 | PCM.PREANE ---
Preanesthetic Assessment - Anesthesia/Transfusion/Family Hx Anesthesia History: Prior Anesthesia Without Reaction Other Type of Anesthesia Reaction Comment: Denies any known problem in past, no known family hx; problems Family History of Anesthesia Reaction: No Transfusion History: No Prior Transfusion(s) - Review of Systems General: No Symptoms Pulmonary: No Symptoms Cardiovascular: No Symptoms Gastrointestinal: No Symptoms Neurological: No Symptoms Other: Reports: None - Physical Assessment NPO Status Date: 12/22/18 Height: 5 ft 8 in Weight: 74.389 kg ASA Class: 2 Mental Status: Alert & Oriented x3 Airway Class: Mallampati = 1 Dentition: Reports: Normal Dentition ROM/Head Extension: Full Lungs: Clear to Auscultation, Normal Respiratory Effort Cardiovascular: Regular Rate, Regular Rhythm - Lab Values: Laboratory Last Values Urine HCG, Qual NEGATIVE (NEGATIVE) 12/23/18 07:00 - Allergies Allergies/Adverse Reactions: Allergies Allergy/AdvReac Type Severity Reaction Status Date / Time Penicillins Allergy Hives Verified 12/22/18 08:28 - Blood Blood Available: No - Anesthesia Plan Pre-Op Medication Ordered: None - Acknowledgements Anesthesia Type Planned: General Anesthesia Pt an Appropriate Candidate for the Planned Anesthesia: Yes Alternatives and Risks of Anesthesia Discussed w Pt/Guardian: Yes Pt/Guardian Understands and Agrees with Anesthesia Plan: Yes Additional Comments: PMH: s/p repair/tightening of trispud valve annulus, with open closure of ASD 10 years ago PLAN: GET PreAnesthesia Questionnaire HEENT History: Reports: Other (See Below) Other HEENT History: has upper and lower permanent dental retainer Cardiovascular History: Reports: Other (See Below) Other Cardiovascular History: Congential tricuspid valve defect Respiratory History: Reports: None Gastrointestinal History: Reports: GERD Genitourinary History: Reports: None FOOD SERVICE SPECIALIST History: Reports: , Other (See Below) Other OB/BYN History: Ovarian cysts Musculoskeletal History: Reports: None Neurological History: Reports: None Psychiatric History: Reports: None Endocrine/Metabolic History: Reports: Diabetes, Gestational Hematologic History: Reports: None Immunologic History: Reports: None Oncologic (Cancer) History: Reports: None Dermatologic History: Reports: None - Infectious Disease History Infectious Disease History: Reports: None - Past Surgical History Head Surgeries/Procedures: Reports: None HEENT Surgical History: Reports: None Cardiovascular Surgical History: Reports: Other (See Below) Other Cardiovascular Surgeries/Procedures: Repair to Tricuspid Valve in 2009. - correction of Ebstein's Anomaly Respiratory Surgical History: Reports: None GI Surgical History: Reports: None Female Surgical History: Reports: Section, Other (See Below) Other Female Surgeries/Procedures: "Bladder stretch surgery 25yrs ago" Endocrine Surgical History: Reports: None Neurological Surgical History: Reports: None Musculoskeletal Surgical History: Reports: None - HOME MEDS Home Medications: Home Meds L.acidoph,Paracasei, B.lactis [Probiotic] 1 cap PO DAILY 10/31/17 [History] Multivitamin [Multivitamins] 1 tab PO DAILY 12/22/18 [History] - CURRENT (IN HOUSE) MEDS Current Meds: Current Medications Lactated Ringer's (Ringers, Lactated) 1,000 mls @ 125 mls/hr IV ASDIRECTED [facility] Scopolamine (Transderm-Scop) 1.5 mg TRDERM Q72H PRN PRN Reason: Nausea/Vomiting Sodium Chloride (Saline Flush) 10 ml FLUSH ASDIRECTED PRN PRN Reason: Keep Vein Open Sodium Chloride (Saline Flush) 2.5 ml FLUSH ASDIRECTED PRN PRN Reason: Keep Vein Open Sodium Chloride (Normal Saline) 10 ml IV ASDIRECTED PRN PRN Reason: IV Use Discontinued Medications Bupivacaine HCl (Marcaine 0.5%) Confirm Administered Dose 30 ml .ROUTE .STK-MED ONE Stop: 12/23/18 07:15 Cefazolin Sodium/Dextrose 2 gm (/ Premix) 50 mls @ 100 mls/hr IV ONETIME ONE Stop: 12/22/18 11:14
[2018-12-23] MEDS ORDERED: Ketorolac 30 MG/ML SDV ONE (07:45)
[2018-12-23] MEDS ORDERED: Ondansetron 4 MG/2 ML SDV ONE (07:45)
[2018-12-23] MEDS ORDERED: Dexamethasone 4 MG/ML 5 ML MDV ONE (07:45)
[2018-12-23] MEDS ORDERED: Lidocaine 2% 5 ML SDV ONE (07:45)
[2018-12-23] MEDS ORDERED: fentaNYL 250 MCG/5 ML SDV ONE (07:46)
[2018-12-23] MEDS ORDERED: Propofol 200 MG/20 ML SDV ONE (07:46)
[2018-12-23] MEDS ORDERED: Midazolam 1 MG/ML 2 ML SDV ONE (07:46)
[2018-12-23] MEDS ORDERED: Rocuronium 100 MG/10 ML Syringe ONE (07:46)
[2018-12-23] MEDS ORDERED: ceFAZolin 1 GM Vial ONE (08:15)
[2018-12-23] MEDS ORDERED: Labetalol 20 MG/4 ML Syringe IVPUSH PRN (09:03)
[2018-12-23] MEDS ORDERED: Promethazine 25 MG/ML SDV IM PRN (09:03)
[2018-12-23] MEDS ORDERED: Acetaminophen/HYDROcodone 325-5 MG Tab PO PRN (09:03)
[2018-12-23] MEDS ORDERED: Morphine 4 MG/ML Syringe IVPUSH PRN (09:03)
[2018-12-23] MEDS ORDERED: Albuterol 0.083% 2.5 MG/3 ML Neb Soln NEB PRN (09:03)
[2018-12-23] MEDS ORDERED: Atropine 0.1 MG/ML 10 ML Syringe IVPUSH PRN (09:03)
[2018-12-23] MEDS ORDERED: hydrALAZINE 20 MG/ML SDV IVPUSH PRN ×2 (09:03)
[2018-12-23] MEDS ORDERED: HYDROmorphone 2 MG/ML SDV IVPUSH PRN (09:03)
[2018-12-23] MEDS ORDERED: Metoclopramide 10 MG/2 ML SDV IVPUSH PRN (09:03)
[2018-12-23] MEDS ORDERED: Ondansetron 4 MG/2 ML SDV IVPUSH PRN (09:03)
[2018-12-23] MEDS ORDERED: Naloxone 0.4 MG/ML Syringe IVPUSH PRN (09:03)
[2018-12-23] MEDS ORDERED: fentaNYL 100 MCG/2 ML SDV IVPUSH PRN (09:03)
[2018-12-23] MEDS ORDERED: Meperidine PF 25 MG/ML Syringe IVPUSH PRN (09:03)
[2018-12-23] MEDS ORDERED: Meperidine PF 25 MG/ML Syringe IV PRN (09:03)
--- NOTE | 2018-12-23 09:27 | PCM.OPNOTE ---
- General Post-Op/Procedure Note Date of Surgery/Procedure: 12/23/18 Operative Procedure(s): Laparoscopic cholecystectomy Findings: Normal appearing gallbladder with omental adhesions Pre Op Diagnosis: Biliary dyskinesia Post-Op Diagnosis: same Anesthesia Technique: General ET Tube Primary Surgeon: Alyse Cohn Secondary Surgeon: Soheila Delgado Pathology: gallbladder Fluid Replacement, Intraop: 1,500 Output, Urine Amount: 25 EBL in mLs: 10 Condition: Good
[2018-12-23] MEDS ORDERED: Acetaminophen/oxyCODONE 325-5 MG Tab PO PRN (09:30)
--- NOTE | 2018-12-23 09:49 | PCM.POSTAN ---
POST ANESTHESIA ASSESSMENT - MENTAL STATUS Mental Status: Alert, Oriented - RESPIRATORY Respiratory Status: Respiratory Rate WNL, Airway Patent, O2 Saturation Stable - CARDIOVASCULAR CV Status: Pulse Rate WNL, Blood Pressure Stable - GASTROINTESTINAL GI Status: No Symptoms - PAIN Pain Score: 0 - POST OP HYDRATION Hydration Status: Adequate & Stable
[2018-12-23 12:22] VITALS: BP 124/60
--- NOTE | 2018-12-23 12:38 | OR ---
SURGEON: DESTINI CROFT MD DATE OF PROCEDURE: 12/23/2018 PREOPERATIVE DIAGNOSIS: Biliary dyskinesia. POSTOPERATIVE DIAGNOSIS: Biliary dyskinesia. PROCEDURE PERFORMED: Laparoscopic cholecystectomy. 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 ANESTHESIA: General endotracheal anesthesia. FLUIDS: 1500 mL of crystalloid. ESTIMATED BLOOD LOSS: 10 mL. URINE OUTPUT: 25 mL. FINDINGS: Normal appearing gallbladder with omental adhesions. COMPLICATIONS: None. INDICATIONS: The patient is a 33-year-old female who presents with biliary dyskinesia. I explained the need for a cholecystectomy. We discussed both the laparoscopic and open approaches. I will attempt to perform it laparoscopically, but should I be unable to perform it safely, I will convert to open. The patient and I discussed the expected perioperative course as well as the risks including bleeding, infection, or damage to surrounding structures. The patient verbalized understanding and wishes to proceed. PROCEDURE IN DETAIL: The patient was brought into the OR and placed on the OR table in supine position. A time-out was completed verifying the patient's name, age, date of , allergies, and procedure to be performed. A general endotracheal anesthesia was induced. The left arm was tucked at the patient's side and a Chow catheter placed. The abdomen was prepped and draped in usual standard fashion. I anesthetized the infraumbilical fold with 0.5% Marcaine plain. An 11 blade was used to make an incision along the infraumbilical fold. Cautery was used to dissect down to the level of the subcutaneous fat. I then bluntly dissected down to the level of the fascia. The fascia was elevated with Bryan's and incised sharply with the Ron scissors. I then identified the peritoneum. This was grasped with a hemostat and incised sharply using Metzenbaum scissors. Entry into the abdomen was palpated with my finger. A 12 mm Genevieve trocar was inserted into the abdomen and it was insufflated. A 5 mm 30 degree scope was inserted and I inspected the area underneath my initial trocar placement. No damage to surrounding structures was noted. The patient was placed into reverse Trendelenburg position and airplaned slightly to the left. 5 mm trocars were placed in the following locations; one in the epigastric area, one in the right flank, and one 2 fingerbreadths below the right subcostal margin along the midclavicular line. The dome of the gallbladder was grasped with an atraumatic grasper and lifted cranially. I identified omental adhesions along the body of the gallbladder. These were taken down using hook cautery. I identified the infundibulum. This was grasped to allow manipulation. Using a combination of blunt dissection and hook cautery, I then took down further omental adhesions as well as the peritoneal attachments along the proximal half of the gallbladder. Once I had cleared away my cystic duct and artery as well as one-third of the proximal cystic plate, I doubly clipped and ligated the cystic artery. Then, I triply clipped and ligated the cystic duct. Hook cautery was then used to take down any further attachments of the gallbladder to the cystic plate. Once the gallbladder was free from the liver bed, I placed an EndoCatch bag and removed it through the infraumbilical port site. The Genevieve trocar was placed back in the abdomen and I inspected my operative field. It was hemostatic. I inspected my clips. There appeared to be no evidence of biliary leakage and there was no bleeding from the cystic artery stump. The 5 mm trocars were removed under direct visualization and the abdomen allowed to desufflate. The 12 mm Genevieve trocar was removed and I closed the fascia at the infraumbilical port site with interrupted 0 Vicryl sutures. The subcutaneous fat layer was closed with interrupted 3-0 Vicryl sutures. The skin was closed with a running 4-0 Monocryl stitch. The 5 mm trocar sites were closed with interrupted 4-0 Monocryl sutures. Steri-Strips and sterile dressings were applied. All counts were complete and correct at the end of the case. The patient tolerated the procedure well and was taken to PACU in stable condition. ELISEO BUITRAGO /[id number]
--- NOTE | 2018-12-23 13:54 | PCM48HPAN ---
Post Anesthesia Note - EVALUATION WITHIN 48HRS OF ANESTHETIC Vital Signs in Normal Range: Yes Patient Participated in Evaluation: Yes Respiratory Function Stable: Yes Airway Patent: Yes Cardiovascular Function Stable: Yes Hydration Status Stable: Yes Pain Control Satisfactory: Yes Nausea and Vomiting Control Satisfactory: Yes Mental Status Recovered: Yes Resp Rate: 16
== END 2018-12-23 12:00 | disposition home or self-care (01) ==
LOC: MW.SDS 06:47
PROVIDERS: ATTEND Surgery
DX: K81.1 Chronic cholecystitis (principal); Z88.0 Allergy status to penicillin; Z79.899 Other long term (current) drug therapy
CPT/HCPCS: 47562; 81025; 88304; A9270; J0690; J1100; J1885; J2001; J2250; J2405; J2704; J3010; J3490; J7120